=== PATIENT | female | born 1950 | race Caucasian/White ===

== ENCOUNTER 2024-04-20 11:00 | Outpatient (RCR) | payer MEDICARE, SELFPAY ==
--- NOTE | 2024-03-08 13:11 | URNOTE ---
Prior auth is not required for Prolia ([id number]), pt has medicare primary, services are based on medical necessity and follow medicare guidelines
[2024-04-19 11:12] LABS: Creatinine* 0.8 mg/dL (0.5-1.5); Est. Creatinine Clearance* 38.44; Estimated Glomerular Filt Rate 77 ml/min
[2024-04-19 11:13] LABS: Calcium* 9.1 mg/dL (8.4-10.6)
[2024-04-20 10:56] VITALS: BP 143/84; PULSE 71; RESP 16; TEMP 36.9; O2SAT 96
[2024-04-20] MEDS: DENOSUMAB 60 MG/ML SYRINGE SUBCUT (11:10)
== END 2024-10-16 23:59 | disposition home or self-care (01) ==
LOC: CCIC 11:00
PROVIDERS: PCP Family Medicine; Visit Provider Clinical Nurse Specialist
DX: M81.0 Age-related osteoporosis without current pathological fracture (principal)
CPT/HCPCS: 36415; 82310; 82565; 96372; J0897

== ENCOUNTER 2024-05-08 10:07 | Outpatient (CLI) | payer MEDICARE, SELFPAY ==
--- OUTSIDE RECORDS SUMMARY | 2024-05-08 10:11 | XMS_ITS | Referral Summary ---
Author Organization [facility] Address [address] [place] [address] Care Team Providers Care Diver'S Tender Name Role Phone Unavailable Primary Care Provider Unavailabl e Source Comments Patient records contain information from all sites at [facility]. For routine questions regarding patient records, call [phone] during business hours, M-F 8:00 AM - 5:00 PM Central Time. Record requests for emergency care only can be directed to [phone] at any time.[facility] Allergies Active Allergy Reactions Criticality Noted Date Comments Lactose Diarrhea Medium 11/01/2023 Medications Medication Sig Dispensed Refills Start Date End Date Status acetaminophen (TYLENOL 8 HR) 650 mg ER tablet Take 1 tablet as needed by oral route. Active amLODIPine (NORVASC) 2.5 mg tablet Take 1 tablet by mouth daily. 04/06/2023 Active atorvastatin (LIPITOR) 10 mg tablet Take 1 tablet by mouth daily. Active denosumab (Prolia) 60 mg/mL syringe 1ml SQ every 6 months 04/20/2022 Active diclofenac-miSOPROS hilario (Arthrotec 50) 50-200 mg-mcg per DR tablet TAKE 1 TABLET BY MOUTH 2 TIMES A DAY WITH FOOD FOR 90 DAYS 09/07/2023 Active estradioL (ESTRACE) 0.1 mg/g (0.01%) vaginal cream APPLY ONE HALF GRAM VAGINALLY TWICE WEEKLY Active etanercept (EnbreL) 50 mg/mL (1 mL) injection Inject 1 mL every week by subcutaneous route. 09/21/2023 Active folic acid 1 mg tablet Take 1 tablet 3 times a day by oral route for 90 days. Active hydroxychloroquine (PlaqueniL) 200 mg tablet Take 1 tablet by mouth 2 (two) times a day. Active methotrexate 2.5 mg tablet 4 tabs PO q week 08/30/2023 Active olmesartan (BENICAR) 40 mg tablet Take 1 tablet every day by oral route for 100 days. Active omega-3 acid ethyl esters (LOVAZA) 1 gram capsule Take 2 capsules twice a day by oral route. Active traMADoL (ULTRAM) 50 mg tablet TAKE 1/2 TABLET BY MOUTH EVERY 4 TO 6 HOURS NEEDED FOR PAIN *TO LAST 30 DAYS Active coQ10, ubiquinol, (COENZYME Q10) 100 mg capsule capsule Take 1 capsule twice a day by oral route. Active METRONIDAZOLE TOP Apply topically. Compound with Ivermectin, Metronidazole, Azelaic Acid, Niacinamide Active CALCIUM ORAL Take by mouth. Active cholecalciferol, vitamin D3, (VITAMIN D3 ORAL) Take by mouth. Act andrews Social History Tobacco Use Types Packs/Day Years Used Date Smoking Tobacco: Never Smokeless Tobacco: Never Tobacco Cessation:Counseling Given: Not Answered Dental Answer Date Recorded Dental: Regular Dentist Unknown 01/05/20 24 Sex and Gender Information Value Date Recorded Sex Assigned at Not on file Gender Identity Not on file Sexual Orientation Not on file Plan of Treatment Upcoming Encounters Date Type Department Care Team (Latest Contact Info) Description 07/16/2024 10:30 AM CDT Comprehensive Visit Department of Dermatology in [address] [phone] Memo Spivey M.D. [address] [place] [phone] Discharge Disposition: Home or Self Care Medical Devices Implanted Type Area Network Mgr Device Identifier Shelf Expiration Date Model / Serial / Lot Hip Implant Hip Implant Right: Hip Knee Implant Knee Implant Bilateral : Knee Additional Health Concerns Infection Onset Date Last Indicated Protective Environment 02/02/2024
--- OUTSIDE RECORDS SUMMARY | 2024-05-08 10:11 | XMS_ITS | Encounter Summary ---
Author Organization [facility] Address [address] [place] [address] Care Team Providers Care Molding Manager Name Role Phone Unavailable Primary Care Provider Unavailabl e Encounter Details Date Type Department Care Team (Latest Contact Info) Description 01/31/2024 1:45 PM CDT Clinical Communication Virtual Review in [place], [place] [address] [place] [address] Social History Tobacco Use Types Packs/Day Years Used Date Smoking Tobacco: Never Smokeless Tobacco: Never Tobacco Cessation:Counseling Given: Not Answered Dental Answer Date Recorded Dental: Regular Dentist Unknown 01/05/20 Sex and Gender Information Value Date Recorded Sex Assigned at Not on file Gender Identity Not on file Sexual Orientation Not on file documented as of this encounter Plan of Treatment Upcoming Encounters Date Type Department Care Team (Latest Contact Info) Description 07/16/2024 10:30 AM CDT Comprehensive Visit Department of Dermatology in [address] [phone] Memo Spivey M.D. [address] [place] [phone] Discharge Disposition: Home or Self Care documented as of this encounter Visit Diagnoses Not on filedocumented in this encounter
--- OUTSIDE RECORDS SUMMARY | 2024-05-08 10:11 | XMS_ITS | Clinical Summary ---
Author Organization [facility] Address [place], [place] [address] Care Team Providers Care Sports Physical Therapist Name Role Phone Eileen Burton MD Primary Care Provider + Allergies Active Allergy Reactions Criticality Noted Date Comments Lactose Diarrhea Medium 11/01/2023 Medications Medication Sig Dispensed Refills Start Date End Date Status coQ10, ubiquinol, 100 mg cap Take 1 capsule twice a day by oral route. Active PlaqueniL 200 mg tablet Take 1 tablet twice a day by oral route. Active etanercept 25 mg/0.5 mL soln Inject subcutaneous. Active atorvastatin (LIPITOR) 10 mg tablet Take 1 Tablet by mouth once daily. Active amLODIPine (NORVASC) 2.5 mg tablet Take 1 Tablet by mouth once daily. 04/06/2023 Active acetaminophen SR (TYLENOL ARTHRITIS) 650 mg Extended-Release tablet Take 1 tablet as needed by oral route. Active denosumab (Prolia) 60 mg/mL injection 1ml SQ every 6 months 04/20/2022 Active methotrexate (RHEUMATREX) 10 mg tablet Take by mouth. Active omega-3 acid ethyl esters (LOVAZA;OMACOR) 1 gram capsule Active traMADoL 25 mg tabIndications:Lumbar facet arthropathy Take 25 mg by mouth 3 times daily if needed (pain). 36 Tablet 1 03/15/2024 Active Active Problems No known active problems Encounters Date Type Department Care Team Description 05/06/2024 Travel 03/23/[address] [address] Tavares Ramirez MD Questions (About 7/2 Injection) 03/15/2024 9:00 AM CDT Office Visit [facility] [address] [place] [address] Tavares Ramirez MD Musculoskeletal Problem (Consult back pain per Dr. Burton) 03/15/2024 Travel 03/11/2024 Orders Only [facility] Scanner 1 scan: (1-Ord) RADIOLOGY, L-SPINE, 03/11/2024 03/09/2024 Orders Only [facility] Scanner 1 scan: (1-Ord) [place], XR LUMBAR SPINE 2-3V, 03/09/2024 from Last 3 Months Social History Tobacco Use Types Packs/Day Years Used Date Smoking Tobacco: Never Smokeless Tobacco: Never Tobacco Cessation:Counseling Given: Not Answered Social Connections Answer Date Recorded Frequency of Communication with Friends and Fami ly Not on file 03/15/2024 Sex and Gender Information Value Date Recorded Sex Assigned at Not on file Gender Identity Not on file Sexual Orientation Not on file Obstetrics History Last Filed Vital Signs Vital Sign Reading Time Taken Comments Blood Pressure 129/84 03/15/2024 8:59 AM CDT Pulse 82 03/15/2024 8:59 AM CDT Temperature 36.6 ??C (97.9 ??F) 03/15/2024 8:59 AM CD T Respiratory Rate - - Oxygen Saturation 98% 03/15/2024 8:59 AM CDT Inhaled Oxygen Concentration - - Weight - - Height - - Body Mass Index - - Plan of Treatment Upcoming Encounters Date Type Department Care Team (Late st Contact Info) Description 05/08/2024 10:40 AM CDT Office Visit [facility] [address] [place] [phone] Tavares Ramirez MD [address] [place] [address] Arrived 05/14/2024 10:00 AM CDT Office Visit [facility] [address] [place] [address] Tavares Ramirez MD [address] [place] [address] Health Maintenance Due Date Last Done Comments Tdap 1959 Depression screening for age 12+ 1960 BMI (ht and wt on same day) for age 18+ 1966 Hepatitis C screening for ag e 18-79 1966 Zoster (shingles) series for age 50+ (1 of 2) 1967 Tetanus booster 1968 Colonoscopy through age 75 1993 Lipids for age 45-75 1993 Medicare Wellness for age 65+ 2013 Pneumococcal series for age 65+ (1 of 1 - PCV) 2013 COVID-19 vaccine series (2022-24 season) 2024 01/07/2024, 07/04/2023, 11/26/2020, Additional history exists Influenza for age 65+ 05/27/2024 DEXA/DXA scan for age 65+ Completed 05/05/2023 Procedures Procedure Name Priority Date/Time Associated Diagnosis Comments AMB EPIDURAL STEROID INJECTION Routine 05/08/2024 7:57 AM CDT Lumbar facet arthropathy DDD (degenerative disc disease), lumbar Lumbar radiculopathy LUZ ELENA (juvenile idiopathic arthritis) (HC) SCAN-CT INTERPRETATION 12:00 AM CDT SCAN-RADIOLOGY REPORT 03/09/2024 12:00 AM CDT SCAN-BONE DENSITOMETRY DEXA 05/05/2023 12:00 AM CDT from Last 3 Months or Most Recently Relevant to Health Maintenance Results * SCAN-CT INTERPRETATION (03/11/2024 12:00 AM CDT) Anatomical Region Laterality Modality Other Scanner OTHER * SCAN-RADIOLOGY REPORT (03/09/2024 12:00 AM CDT) Anatomical Region Laterality Modality Other Scanner OTHER * SCAN-BONE DENSITOMETRY DEXA (05/05/2023 12:00 AM CDT) Anatomical Region Laterality Modality Other Scanner OTHER from Last 3 Months or Most Recently Relevant to Health Maintenance Care Teams Sports Physical Therapist Relationship Specialty Start Date End Date Eileen Burton MD [address] [place] [address] PCP - General Family Practice 03/12/24
--- OUTSIDE RECORDS SUMMARY | 2024-05-08 10:11 | XMS_ITS | Encounter Summary ---
Author Organization [facility] Address [address] [place] [address] Care Team Providers Care Senior Accounting Manager Name Role Phone Unavailable Primary Care Provider Unavailabl e Reason for Visit * Appointment Request (Routine) - Closed Specialty Diagnoses / Procedures Referred By Tru t Referred To Contact Ophthalmology Diagnoses Cataract Diplopia Astigmatism Cholo Perkins M.D. [address] [place] [address] Referral ID Status Reason Start Date Expiration Date Visits Re quested Visits Authorized [id number] Closed 01/05/2024 01/04/2025 1 1 Encounter Details Date Type Department Care Team (Latest Contact Info) Description 02/03/2024 8:00 AM CDT Comprehensive Visit Department of Ophthalmology in [place], [place] [address] [place] [address] Dean Welch M.D., Ph.D. [address] [place] [address] Insufficiency Divergence (Primary Dx); Dry Eye Syndrome Bilateral; Cataract Senile Cortical Bilateral; Diplopia Social History Tobacco Use Types Packs/Day Years Used Date Smoking Tobacco: Never Smokeless Tobacco: Never Dental Answer Date Recorded Dental: Regular Dentist Unknown 01/05/20 24 Sex and Gender Information Value Date Recorded Sex Assigned at Not on file Gender Identity Not on file Sexual Orientation Not on file documented as of this encounter Consult Notes * Dean Welch M.D., Ph.D. - 02/03/2024 8:00 AM CDT ASSESSMENT / PLAN #1 Diplopia #2 Dry eyes, both eyes #3 Cataracts, both eyes #4 History of LUZ ELENA on plaquenil (200mg BID since - September 2023, then on 200mg daily) In [id number], she developed intermittent binocular horizontal diplopia. Since 2019, this became constant. She had prism placed in 2019 with a total of 5^base out and reports no issues with diplopia. Sep 2023, the prism was increased to 6^ base out, but she reports minimal diplopia even with the 5^.She does not have diplopia with her current glasses on. Exam today shows visual acuity of 20/25 (pinhole 20/20) in the right eye and 20/25 (pinhole 20/20) in the left eye with full color plates in both eyes. There is fairly comitant esotropia at distance with minimal progression since onset. There is no papilledema. 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 This has been fairly stable since 2019 so I am not concerned about a neurologic process. If the diplopia worsens over time, I would recommend re-evaluation and MRI brain. She is doing well in terms of cataracts. She is currently doing well with her activities she enjoysand she could consider cataract surgery in the near future. HPI POH: no past ocular problem, no eye surgery or laser, no history of amblyopia or patching. 07.12.2022 [facility] Visual acuity 20/30 right eye and 20/40 (pinhole 20/30) left eye, Mrx BCVA 20/25 right eye and 20/30 left eye She was given a total of 5 base out prism. 10.22.2022 [facility] Visual acuity 20/40 right eye and 20/40 (pinhole 20/30) left eye Exam: optic discs flat, sharp, good color both eyes 09.02.2023 [facility] Visual acuity 20/40 right eye and 20/40 (pinhole 20/30) left eye Exam: optic discs flat, sharp, good color both eyes ROS: all positives are listed in the HPI and all other elements are negative or not pertinent to the patient's presentation. I have reviewed the family history, past history, and social history from the patients Epic, care everywhere, and documents scanned into system. The patient's prior records were reviewed in detail, including prior testing and examinations. documented in this encounter Plan of Treatment Upcoming Encounters Date Type Department Care Team (Latest Contact Info) Description 07/16/2024 10:30 AM CDT Comprehensive Visit Department of Dermatology in [address] [phone] Memo Spivey M.D. [address] [place] [phone] Discharge Disposition: Home or Self Care documented as of this encounter Procedures Procedure Name Priority Date/Time Associated Diagnosis Comments SENSORY MOTOR EXAM Routine 02/03/2024 8: 30 AM CDT Insufficiency Divergence documented in this encounter Results * Sensory Motor Exam (02/03/2024 8:30 AM CDT) Narrative OPHTHALMOLGY NON-IMAGING ORDERS - 02/03/2024 9:15 AM CDT I have reviewed the medical record and the sensorimotor exam documentation. The findings are consistent with my previously initiated care plan. I agree with the impression, plan, and follow up as entered by the area intelligence technician. Notes See note Dean Welch M.D., Ph.D. OPHTH TOMOGRAPHY OPHTHALMOLGY NON-IMAGING ORDERS documented in this encounter Visit Diagnoses Diagnosis Insufficiency Divergence- Primary Dry Eye Syndrome Bilateral Cataract Senile Cortical Bilateral Diplopia documented in this encounter Additional Health Concerns Infection Onset Date Last Indicated Resolved Time Protective Environment 02/02/2024 02/02/2024 documented as of this encounter
--- OUTSIDE RECORDS SUMMARY | 2024-05-08 10:11 | XMS_ITS | Clinical Summary ---
Author Organization [facility] Address [address] [place] [address] Care Team Providers Care Ironworker Wire Fence Erector Name Role Phone Unavailable Primary Care Provider Unavailabl e Source Comments Patient records contain information from all sites at [facility]. For routine questions regarding patient records, call [phone] during business hours, M-F 8:00 AM - 5:00 PM Central Time. Record requests for emergency care only can be directed to [phone] at any time.[facility] Allergies Active Allergy Reactions Criticality Noted Date [...] CDT Comprehensive Visit Department of Dermatology in [address] [phone] Memo Spivey M.D. [address] [place] [phone] Discharge Disposition: Home or Self Care Health Maintenance Due Date Last Done Comments Bone Density Scan (Osteoporosis Screen) 1948 CT Colonography 1948 Cologuard 1948 Colonoscopy 1948 Colorectal Cancer Screening 1948 Creatinine Level (Kidney Function Test) 1948 FIT 1948 Fasting Glucose for Diabetes Screening 1948 Hepatitis C Screening 1948 Potassium Level 1948 Sodium Level 1948 Depression Screening (Annual PHQ-2) 09/26/2023 Fall Risk Screen (Annual) 09/26/2023 Influenza Vaccine (#1) 2024 3, 07/02/2022, 07/01/2021, Additional history exists Mammogram 09/21/2024 09/21/2023, 04/28/2022 DTaP,Tdap,and Td Vaccines (6 - Td or Tdap) 11/19/2033 11/19/2023, 06/06/2012, 04/08/2006, Additional history exists Zoster Vaccines Completed 09/30/2023, 05/07/2023 Pneumococcal vaccine (65+ years) Completed 10/14/2023, 08/21/2018, 04/08/2006, Additional history exists COVID-19 Vaccine Completed 01/07/2024, , 07/22/2023, Additional history exists HPV Vaccines Aged Out No longer eligi ble based on patient's age to complete this topic Medical Devices Implanted Type Area Human Resources Consultant Device Identifier Shelf Expiration Date Model / Serial / Lot Hip Implant Hip Implant Right: Hip Knee Implant Knee Implant Bilateral : Knee Additional Health Concerns Infection Onset Date Last Indicated Protective Environment 02/02/2024
--- OUTSIDE RECORDS SUMMARY | 2024-05-08 10:11 | XMS_ITS ---
Author Organization [facility] Address [address] [place] [address] Care Team Providers Care Wharf Hand Name Role Phone Unavailable Unavailable Unavailable Surgery Details Not on file Complications Check Surgery Details section. Procedure Estimated Blood Loss Check Surgery Details section. Procedure Findings Check Surgery Details section. Procedure Specimens Taken Check Surgery Details section.
== END 2024-05-08 10:08 | disposition home or self-care (01) ==
LOC: INJ CL 10:09
PROVIDERS: PCP Family Medicine; Visit Provider Family Medicine
DX: M51.36 Other intervertebral disc degeneration, lumbar region (principal); M54.16 Radiculopathy, lumbar region
CPT/HCPCS: 62323; J0702; Q9966

== ENCOUNTER 2024-06-20 09:22 | Outpatient (CLI) | payer MEDICARE, SELFPAY ==
--- OUTSIDE RECORDS SUMMARY | 2024-06-20 09:31 | XMS_ITS | Clinical Summary ---
Author Organization [facility] Address [address] [place] [address] Care Team Providers Care Validation Software Facilitator Name Role Phone Unavailable Primary Care Provider Unavailabl e Source Comments Patient records contain information from all sites at [facility]. For routine questions regarding patient records, call [phone] during business hours, M-F 8:00 AM - 5:00 PM Central Time. Record requests for emergency care only can be directed to [phone] at any time.[facility] Allergies Active Allergy Reactions Criticality Noted [...] CDT Comprehensive Visit Department of Dermatology in [address] [phone] Memo Spivey M.D. [address] [place] [phone] Discharge Disposition: Home or Self Care Health Maintenance Due Date Last Done Comments Creatinine Level (Kidney Function Test) 1948 Hepatitis C Screening 1950 Potassium Level 1948 Sodium Level 1948 Depression Screening (Annual PHQ-2) 09/26/2023 Fall Risk Screen (Annual) 09/26/2023 COVID-19 Vaccine ( season) 2024 01/07/2024, 01/07/2024, 07/22/2023, Additional history exists Influenza Vaccine (#1) 2024 3, 07/02/2022, 07/01/2021, Additional history exists DTaP,Tdap,and Td Vaccines (6 - Td or Tdap) 11/19/2033 11/19/2023, 06/06/2012, 04/08/2006, Additional history exists RSV vaccine - (32-36 weeks) or 60+ years Completed 06/10/2023 Mammogram Discontinued 09/21/2023, 04/28/2022 Zoster Vaccines Completed 09/30/2023, 05/07/2023 Pneumococcal vaccine (65+ years) Completed 10/14/2023, 08/21/2018, 04/08/2006, Additional history exists HPV Vaccines Aged Out No longer eligi ble based on patient's age to complete this topic Medical Devices Implanted Type Area Group President Device Identifier Shelf Expiration Date Model / Serial / Lot Hip Implant Hip Implant Right: Hip Knee Implant Knee Implant Bilateral : Knee Additional Health Concerns Infection Onset Date Last Indicated Protective Environment 02/02/2024
--- OUTSIDE RECORDS SUMMARY | 2024-06-20 09:31 | XMS_ITS | Clinical Summary ---
Author Organization [employer] [facility] Address [place], [place] [address] Care Team Providers Care Roofer Applicator Name Role Phone Eileen Burton MD Primary [...] Encounters Date Type Department Care Team Description 06/14/2024 11:20 AM CDT Office Visit [facility] [address] [place] [address] Tavares Ramirez MD Musculoskeletal Problem (Follow up back and right hip bursitis) 06/14/2024 Travel 05/25/2024 Telephone [facility] [address] [facility] [address] Tavares Ramirez MD Referral 05/14/2024 10:00 AM CDT Office Visit [facility] [address] [facility] [place] [address] Tavares Ramirez MD Musculoskeletal Problem (Follow up back pain, ROMAINE on 05/08/24) 05/14/2024 Travel 05/08/2024 10:40 AM CDT Office Visit [facility] at [address] [address] Tavares Ramirez MD Procedure (L4-5 ILESI) 05/06/2024 Travel 03/23/2024 Telephone [facility] [address] [place] [address] Tavares Ramirez MD Questions (About 7/2 Injection) from Last 3 Months Social History Tobacco Use Types Packs/Day Years Used Date Smoking Tobacco: Never Smokeless Tobacco: Never Tobacco Cessation:Counseling Given: Yes Social Connections Answer Date Recorded Frequency of Communication with Friends and Fami ly Not on file 03/15/2024 Sex and Gender Information Value Date Recorded Sex Assigned at Not on file Gender Identity Not on file Sexual Orientation Not on file Obstetrics History Last Filed Vital Signs Vital Sign Reading Time Taken Comments Blood Pressure 126/79 06/14/2024 11:39 AM CDT Pulse 86 06/14/2024 11:39 AM CDT Temperature 36.9 ??C (98.5 ??F) 06/14/2024 11:39 AM C DT Respiratory Rate - - Oxygen Saturation 98% 06/14/2024 11:39 AM CDT Inhaled Oxygen Concentration - - Weight 56.1 kg (123 lb 9.6 oz) 06/14/2024 11:39 AM CDT Height - - Body Mass Index - - Plan of Treatment Health Maintenance Due Date Last Done Comments Tdap 1959 Depression screening for age 12+ 1960 BMI (ht and wt on same day) for age 18+ 1966 Hepatitis C screening for ag e 18-79 1966 Zoster (shingles) series for age 50+ (1 of 2) 1967 Tetanus booster 1968 Medicare Wellness for age 65+ 2013 Pneumococcal series for age 65+ (1 of 1 - PCV) 2013 RSV vaccine for adults or (1 - 1-dose 75+ series) 2023 COVID-19 vaccine series ( - season) 2024 01/07/2024, 07/04/2023, 11/26/2020, Additional history exists Influenza for age 65+ 05/27/2024 DEXA/DXA scan for age 65+ Completed 05/05/2023 Procedures Procedure Name Priority Date/Time Associated Diagnosis Comments AMB EPIDURAL STEROID INJECTION Routine 05/08/2024 12:00 AM CDT Lumbar facet arthropathy DDD (degenerative disc disease), lumbar Lumbar radiculopathy LUZ ELENA (juvenile idiopathic arthritis) (HC) SCAN-BONE DENSITOMETRY DEXA 05/05/2023 12:00 AM CDT from Last 3 Months or Most Recently Relevant to Health Maintenance Results * AMB EPIDURAL STEROID INJECTION (05/08/2024 12:00 AM CDT) Tavares Ramirez MD NEUROLOGY ORD * SCAN-BONE DENSITOMETRY DEXA (05/05/2023 12:00 AM CDT) Anatomical Region Laterality Modality Other Scanner OTHER from Last 3 Months or Most Recently Relevant to Health Maintenance Care Teams Roofer Applicator Relationship Specialty Start Date End Date Eileen Burton MD [address] [place] [address] PCP - General Family Practice 03/12/24
--- OUTSIDE RECORDS SUMMARY | 2024-06-20 09:31 | XMS_ITS | Referral Summary ---
Author Organization [facility] Address [address] [place] [address] Care Team Providers Care Operator Name Role Phone Unavailable Primary Care Provider Unavailabl e Source Comments Patient records contain information from all sites at [facility]. For routine questions regarding patient records, call [phone] during business hours, M-F 8:00 AM - 5:00 PM Central Time. Record requests for emergency care only can be directed to [phone] at any time.[facility] Allergies Active Allergy Reactions Criticality Noted Date [...] CDT Comprehensive Visit Department of Dermatology in [address] [id number] Memo Spivey M.D. [address] [place] [id number] Discharge Disposition: Home or Self Care Medical Devices Implanted Type Area Wellness Nurse Rn Device Identifier Shelf Expiration Date Model / Serial / Lot Hip Implant Hip Implant Right: Hip Knee Implant Knee Implant Bilateral : Knee Additional Health Concerns Infection Onset Date Last Indicated Protective Environment 02/02/2024
--- OUTSIDE RECORDS SUMMARY | 2024-06-20 09:31 | XMS_ITS ---
Author Organization [facility] Address [address] [place] [address] Care Team Providers Care Professor Of Economics Name Role Phone Unavailable Unavailable Unavailable Surgery Details Not on file Complications Check Surgery Details section. Procedure Estimated Blood Loss Check Surgery Details section. Procedure Findings Check Surgery Details section. Procedure Specimens Taken Check Surgery Details section.
== END 2024-06-20 09:23 | disposition home or self-care (01) ==
LOC: NFLDREF 09:24
PROVIDERS: PCP Family Medicine; Visit Provider Family Medicine
DX: Z01.818 Encounter for other preprocedural examination (principal); I10 Essential (primary) hypertension
CPT/HCPCS: 80048